=== PATIENT | male | born 1980 | race Hispanic/Latino ===

== ENCOUNTER 2016-06-30 21:37 | Emergency (ER) | payer OTHER ==
--- NOTE | 2016-06-30 23:13 | ERNOTE ---
ENT HPI Date of Service: 06/30/16 Time Seen by Provider: 06/30/16 23:13 - Immun/Allergies/Home Medications Immunizations: IMMUNIZATION HX Immunizations Up to Date No History of Influenza Vaccine No Hx Pneumococcal Vaccination No Allergies/Adverse Reactions: Allergies Allergy/AdvReac Type Severity Reaction Status Date / Time hydrocodone Allergy Hives Verified 06/30/16 22:17 Home Medications: HOME MEDICATIONS Ibuprofen [Motrin] 800 mg PO Q8H PRN #30 tablet 07/01/16 [Last Taken Unknown] - Patient's Past Medical History Patient History - Medical: Other Patient History - Cardiac/Respiratory: No pertinent hx Patient History - Cancer: No Hx of Cancer Patient History - Surgical Procedures: No surgical history Patient History - Other: None - Social History Living Situations: home Psych History: No pertinent hx Smoking Status: Former smoker Alcohol Use: none Drug Use: none - Immunizations Immunizations Up to Date: No Hx Pneumococcal Vaccination: No History of Influenza Vaccine: No ED Progress - Results and Orders Patient's Lab Results:: I have reviewed the patient's lab results. - Vital Signs Patient's Vital Signs:: I have reviewed the patient's vital signs. Vital Signs: Vital Signs 06/30/16 06/30/16 22:09 23:06 Temperature 36.1 C L Pulse Rate 83 84 Respiratory 18 18 Rate Blood Pressure 128/71 151/94 O2 Sat by Pulse 98 96 Oximetry - Progress/Reassessment Chief Complaint: Sore Throat Progress:: Improved Departure Clinical Impression: Viral syndrome - Departure Disposition: Home self-care Condition: Good Instructions: Viral Respiratory Infection, [id number] Print Language: Slovenian Prescriptions: Ibuprofen [Motrin] 800 mg PO Q8H PRN #30 tablet PRN Reason: Analgesia
[2016-06-30] MEDS ORDERED: DEXAMETHASONE SOD PHOSPHATE 10 MG/ML VIAL IM ONE (23:52)
[2016-06-30] MEDS ORDERED: KETOROLAC TROMETHAMINE 60 MG/2 ML VIAL IM ONE ×2 (23:52→23:58)
[2016-06-30] MEDS ORDERED: DEXAMETHASONE SOD PHOSPHATE 10 MG/ML VIAL ONE (23:58)
[2016-07-01 04:50] VITALS: BP 116/70
== END 2016-07-01 01:45 | disposition home or self-care (01) ==
LOC: ER 21:37
DX: B34.9 Viral infection, unspecified (principal)